=== PATIENT | female | born 1955 | race Caucasian/White ===

== ENCOUNTER 2023-08-04 14:55 | Outpatient (RCR) | payer MEDICARE ==
[~2023-08-04 14:55] MED LIST: AMBIEN10 MG PO; ASPIRIN81 MG PO; HYDROCODON-ACE1 EA15 PO
== END 2023-08-05 ==
LOC: PT 14:55
PROVIDERS: ATTEND Physician Assistant
DX: Z47.1 Aftercare following joint replacement surgery (principal); Z96.652 Presence of left artificial knee joint; M25.562 Pain in left knee; M25.662 Stiffness of left knee, not elsewhere classified; M62.81 Muscle weakness (generalized); R26.2 Difficulty in walking, not elsewhere classified

== ENCOUNTER 2023-09-08 10:45 | Outpatient (RCR) | payer MEDICARE | END 2023-10-05 | LOC: PT 10:45 | PROVIDERS: ATTEND Physician Assistant | DX: Z47.1 Aftercare following joint replacement surgery (principal); Z96.652 Presence of left artificial knee joint ==